=== PATIENT | female | born 1985 | race African-American/Black ===

== ENCOUNTER 2022-04-08 10:26 | Emergency (ER) | payer BC, SELFPAY | END 2022-04-08 11:39 | disposition home or self-care (01) | LOC: BURERS 10:26 | DX: J06.9 Acute upper respiratory infection, unspecified (principal); Z20.822 Contact with and (suspected) exposure to COVID-19 | CPT/HCPCS: 87804; 99283; U0003; U0005 ==

== ENCOUNTER 2023-04-30 11:48 | Emergency (ER) | payer BC ==
[2023-04-30] MEDS ORDERED: Bicillin LA 1.2 MILLION UNITS/2 ML SYRINGE ONE (12:19)
== END 2023-04-30 12:23 | disposition home or self-care (01) ==
LOC: BURERS 11:48
DX: J02.9 Acute pharyngitis, unspecified (principal)
CPT/HCPCS: 99282; J0561

== ENCOUNTER 2024-08-29 08:17 | Emergency (ER) | payer BC | END 2024-08-29 10:08 | disposition home or self-care (01) | LOC: BURERS 08:17 | DX: J06.9 Acute upper respiratory infection, unspecified (principal); I10 Essential (primary) hypertension | CPT/HCPCS: 87428; 99283 ==